=== PATIENT | male | born 1965 | race Caucasian/White ===

== ENCOUNTER 2020-08-16 15:00 | Outpatient (REF) | payer MEDICARE, MEDICAID, SELFPAY | END 2020-08-16 15:01 | disposition home or self-care (01) | LOC: HO.HAP 15:00 | PROVIDERS: Visit Provider Internal Medicine | DX: Z46.1 Encounter for fitting and adjustment of hearing aid (principal); H90.3 Sensorineural hearing loss, bilateral | CPT/HCPCS: V5264 ==

== ENCOUNTER 2020-11-06 13:18 | Outpatient (REF) | payer MEDICARE, MEDICAID, SELFPAY ==
--- NOTE | 2020-11-06 13:48 | MHC.AU.P13 ---
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 Ear: Rounder Hand: Model: Ria2 Pro miniteRITE Serial Number: [id number] Warranty: 05/20/2020 Service Plan: Battery Size: 312 Color: Environmental Engineer: Size 2 60 gain Tubing: Type of Dome: Type of Mold: RITE mold hard minifit [id number] Type of Wax Guard: Prowax Dispensed By: Date of Fitting: Left Ear: Rounder Hand: Oticon Model: Ria2 Pro miniRITE Serial Number: [id number] Warranty: 05/20/2020 Service Plan: Battery Size: 312 Color: Environmental Engineer: Size 2 60 gain Tubing: Type of Dome: Type of Mold: RITE mold hard minifit SN: [id number] Type of Wax Guard: Prowax Dispensed By: Date of Fitting: Follow-Up Summary: Hearing aids dropped off for maintenance - changed batteries, cleaned, changed wax guards - now amplifying clearly. Explained to a staff member batteries were and wax guards were clogged. Recommendations: Recommendations: Hearing instrument follow-up or maintenance as needed. Recommendations (Other): Signature: Student/Clinical Fellow: No I have reviewed/agreed with student/fellow documentation: N/A Provider: JOSE CRUZ Berger-
== END 2020-11-06 13:19 | disposition home or self-care (01) ==
LOC: HO.HAP 13:18
PROVIDERS: Visit Provider Internal Medicine
DX: Z46.1 Encounter for fitting and adjustment of hearing aid (principal)
CPT/HCPCS: 92593; 99499